=== PATIENT | male | born 1940 | race Caucasian/White ===

== ENCOUNTER 2023-10-05 07:53 | Emergency (ER) | payer MEDICARE, SELFPAY ==
[2023-10-05] VITALS (57 sets, daily range): BP systolic 130–209; BP diastolic 70–93; PULSE 60–86; RESP 15–24; TEMP 36.5; O2SAT 91–98; BMI 29.1
--- NOTE | 2023-10-05 07:59 | DI.RAD.S_ITS ---
PROCEDURE: XR CHEST 1V INDICATIONS: chest pain TECHNIQUE: One view of the chest was acquired. COMPARISON: None. FINDINGS: Surgical changes and devices: Left chest wall pacemaker leads are in the region of right atrium and right ventricle. Median sternotomy wires and surgical clips are seen. Lungs and pleura: Mild elevation of right hemidiaphragm is seen. Mild pulmonary vascular congestion is also noted. No definite focal infiltrate. No pleural effusions or pneumothorax. Mediastinum: Mediastinal contours appear normal. Heart size is enlarged. Bones and chest wall: No suspicious bony lesions. Overlying soft tissues appear unremarkable. IMPRESSION: Cardiomegaly and mild pulmonary vascular congestion. No definite focal infiltrate, significant pleural effusion or pneumothorax. Dictated by: Dakota Nair M.D. on 10/05/2023 at 8:54 Approved by: Dakota Nair M.D. on 10/05/2023 at 8:55
--- NOTE | 2023-10-05 08:06 | ED_ITS ---
HPI - General Adult General Chief complaint: Chest Pain Stated complaint: pain in chest, taken a couple nitro not helping Time Seen by Provider: 10/05/23 07:56 Source: patient Mode of arrival: Ambulatory Limitations: no limitations History of Present Illness HPI narrative: Patient is an 83-year-old male. History of coronary artery disease. Several years ago had coronary artery bypass graft. Also has had an aortic valve replacement approximately year ago. He has a pacemaker. Is here for evaluation of chest discomfort. He states he had some discomfort last evening. He took a nitro. He states it did not help his symptoms. The same pain was present this morning when he woke up. He took 2 more nitro. Does not think that hit has helped at all but he does feel like he is somewhat more comfortable now than what he was earlier. No fevers. No coughing. No abdominal pain. He states that the discomfort is up to his left shoulder. Related Data Previous Rx's Medication Instructions Recorded isosorbide mononitrate 30 mg 30 mg PO DAILY #30 tabs 10/05/23 tablet,extended release 24 hr Allergies Allergy/AdvReac Type Severity Reaction Status Date / Time No Known Drug Allergies Allergy Verified 10/05/23 08:33 Review of Systems Review of Systems ROS Unobtainable: All systems reviewed & are unremarkable except as noted in HPI and below Patient History Social History Smoking Status: Never smoker Exam Initial Vital Signs Initial Vital Signs: Vital Signs Pulse Rate 75 10/05/23 08:00 Respiratory Rate 19 10/05/23 08:00 Pulse Oximetry 91 10/05/23 08:00 Const General: cooperative HENMT Head: normal to inspection and normocephalic Resp Effort & Inspection: normal respiratory effort Auscultation: clear to auscultation bilaterally Cardio Rate: regular rate Rhythm: regular rhythm GI Inspection: normal to inspection and non-distended Palpation: soft and No tender Skin General: no rashes or lesions noted Neuro General: patient alert, patient awake and moves all extremities Extrem General: edema Course Orders Ordered: ED Orders 10/05/23 11:00 Troponin & CK Cardiac Panel Stat Discontinued Medications Aspirin (Aspirin 81 Mg Chew Tab) 324 mg PO NOW ONE Stop: 10/05/23 08:10 Last Admin: 10/05/23 08:16 Dose: 324 mg Documented By: SHYANNE Morphine Sulfate (Morphine 4 Mg/Ml Inj) 4 mg IV NOW ONE Stop: 10/05/23 08:29 Last Admin: 10/05/23 08:35 Dose: 4 mg Documented By: SHYANNE Nitroglycerin (Nitroglycerin 0.4 Mg Sl Tab) 0.4 mg SL [id number] PRN PRN Reason: Chest Pain Last Admin: 10/05/23 08:16 Dose: 0.4 mg Documented By: SHYANNE Vital Signs Vital signs: Vital Signs - 8 hr 10/05/23 10:10 10/05/23 10:15 10/05/23 10:20 Pulse Rate 60 63 62 Respiratory Rate 20 21 19 Blood Pressure Pulse Oximetry 92 97 92 10/05/23 10:25 10/05/23 10:30 10/05/23 10:30 Pulse Rate 60 60 Respiratory Rate 20 19 Blood Pressure 167/78 H Pulse Oximetry 91 94 10/05/23 10:35 10/05/23 10:40 10/05/23 10:45 Pulse Rate 60 63 60 Respiratory Rate 20 19 18 Blood Pressure Pulse Oximetry 94 93 96 10/05/23 10:50 10/05/23 10:55 10/05/23 11:06 Pulse Rate 60 60 86 Respiratory Rate 18 21 Blood Pressure Pulse Oximetry 94 92 93 10/05/23 11:07 10/05/23 11:07 10/05/23 11:10 Pulse Rate 83 64 Respiratory Rate Blood Pressure 182/86 H Pulse Oximetry 93 94 10/05/23 11:15 10/05/23 11:20 10/05/23 11:25 Pulse Rate 60 60 65 Respiratory Rate 21 22 24 Blood Pressure Pulse Oximetry 94 92 96 10/05/23 11:30 10/05/23 11:30 10/05/23 11:35 Pulse Rate 60 66 Respiratory Rate 19 21 Blood Pressure 183/80 H Pulse Oximetry 92 92 10/05/23 11:40 10/05/23 11:45 10/05/23 11:50 Pulse Rate 61 60 60 Respiratory Rate 21 21 20 Blood Pressure Pulse Oximetry 94 94 94 10/05/23 11:55 10/05/23 12:00 10/05/23 12:00 Pulse Rate 60 60 Respiratory Rate 21 19 Blood Pressure 175/80 H Pulse Oximetry 91 10/05/23 12:05 10/05/23 12:30 10/05/23 12:30 Pulse Rate 60 62 Respiratory Rate 18 18 Blood Pressure 170/75 H Pulse Oximetry 92 10/05/23 12:48 10/05/23 12:48 Pulse Rate 63 Respiratory Rate 19 Blood Pressure 182/81 H Pulse Oximetry 96 Medical Decision Making Lab Data Lab results reviewed: Yes I reviewed the patient's lab results. 10/05/23 08:03 10/05/23 08:03 Labs: Lab Results 10/05/23 10/05/23 Range/Units 08:03 11:00 WBC 8.7 (4.5-11.0) X10^3/uL RBC 4.15 L (4.5-5.9) X10^6/uL Hgb 13.1 L (13.5-17.5) g/dL Hct 39.5 L (41-53) % MCV 95.2 (80-100) fL MCH 31.6 (26-34) PG MCHC 33.2 (30-36) % RDW 14.3 (11.6-14.8) % Plt Count 148 L (150-400) X10^3/uL Neut % (Auto) 67.9 (50-75) % Lymph % (Auto) 18.4 L (25-40) % [place] % (Auto) 10.0 (3-14) % Eos % (Auto) 2.9 (2-4) % Baso % (Auto) 0.8 (0-2) % Neut # (Auto) 5900 (4960-4042) /uL Lymph # (Auto) 1600 (3745-7747) /uL [place] # (Auto) 900 (0-900) /uL Eos # (Auto) 300 (0-450) /uL Baso # (Auto) 100 (0-100) /uL Sodium 140 (137-145) mmol/L Potassium 4.1 (3.4-5.1) mmol/L Chloride 102 (98-107) mmol/L Carbon Dioxide 33 H (22-32) mmol/L BUN 25 H (9-20) mg/dL Creatinine 1.16 (0.66-1.25) mg/dL Estimated GFR > 60 (>60) mL/min BUN/Creatinine Ratio 21.6 (6-22) Glucose 139 H (80-110) mg/dL Calcium 9.6 (8.4-10.2) mg/dL Magnesium 1.8 (1.6-2.3) mg/dL Total Bilirubin 0.7 (0.2-1.3) mg/dL AST TNP ALT 23 (<50) IU/L Alkaline Phosphatase 82 (38-126) U/L Total Creatine Kinase 114 93 (55-170) U/L Troponin I 0.039 H 0.024 (0.01-0.034) ng/mL Total Protein 7.3 (6.3-8.2) g/dL Albumin 4.0 (3.5-5.0) g/dL Globulin 3.3 (1.7-4.1) g/dL Albumin/Globulin Ratio 1.2 (1.0-2.8) Lipase 89 (23-300) U/L Imaging Data Chest x-ray: Radiologist's Impression: PROCEDURE: XR CHEST 1V INDICATIONS: chest pain TECHNIQUE: One view of the chest was acquired. COMPARISON: None. FINDINGS: Surgical changes and devices: Left chest wall pacemaker leads are in the region of right atrium and right ventricle. Median sternotomy wires and surgical clips are seen. Lungs and pleura: Mild elevation of right hemidiaphragm is seen. Mild pulmonary vascular congestion is also noted. No definite focal infiltrate. No pleural effusions or pneumothorax. Mediastinum: Mediastinal contours appear normal. Heart size is enlarged. Bones and chest wall: No suspicious bony lesions. Overlying soft tissues appear unremarkable. IMPRESSION: Cardiomegaly and mild pulmonary vascular congestion. No definite focal infiltrate, significant pleural effusion or pneumothorax. ECG Data Attestation: I personally reviewed and interpreted this ECG as follows: Interpretation: Av dual paced Ventricular rate of 63 MDM Narrative Medical decision making narrative: Patient had almost complete resolution of chest discomfort after morphine. Nitro did not seem to help his symptoms all that much. He did state that his elementary school teacher told him that he was looking more of medical management rather than further interventions. I did talk with elementary school teacher on-call at the [place] [facility] who stated the patient could be started on Imdur. A prescription for this was provided. Plan is for discharge home with continuing his current medications. He will start the Imdur. He was given specific return precautions. He expressed understanding and agreement. Discharge Plan Departure Patient Disposition: Home Clinical Impression: Chest pain Instructions: DI for Chest Pain Activity Restrictions/Additional Instructions: We are going to start a new medicine today called Imdur/isosorbide. This is a daily medication that hopefully will help with any chest discomfort. If your symptoms return or worsen please return to the emergency department. Please contact your elementary school teacher for follow-up. Continue the rest of your medications as directed. Prescriptions: New isosorbide mononitrate 30 mg tablet extended release 24 hr 30 mg PO DAILY Qty: 30 0RF Stand Alone Forms: Patient Portal/API
--- NOTE | 2023-10-05 08:12 | PC.NURSE ---
Pt came to the ED today because he woke up and was feeling left cp that radiates down his left arm and into his back. Pt describes pain and dull, crushing and pressure and also states that he is feeling SOB and dizzy. Pt has a hx of cardiac stents, coronoary bipass and valve replacement. Pt hypertensive and pale at the time of triage. Pt AV paced with junctional rhythm.
[2023-10-05 08:15] LABS: Add Manual Diff / Slide Review NO; Basophils Absolute Auto 100 /uL (0-100); Basophils Percent Auto 0.8 % (0-2); Eosinophils Absolute Auto 300 /uL (0-450); Eosinophils Percent Auto 2.9 % (2-4); Hematocrit 39.5 % (41-53); Hemoglobin 13.1 g/dL (13.5-17.5); Lymphocytes Absolute Auto 1600 /uL (1100-4500); Lymphocytes Percent Auto 18.4 % (25-40); Mean Corpuscular HGB Conc 33.2 % (30-36); Mean Corpuscular Hemoglobin 31.6 PG (26-34); Mean Corpuscular Volume 95.2 fL (80-100); Monocytes Absolute Auto 900 /uL (0-900); Neutrophils Absolute Auto 5900 /uL (1500-7000); Neutrophils Percent Auto 67.9 % (50-75); Platelet Count 148 X10^3/uL (150-400); Red Blood Cell Count 4.15 X10^6/uL (4.5-5.9); Red Cell Distribution Width 14.3 % (11.6-14.8); White Blood Cell Count 8.7 X10^3/uL (4.5-11.0)
[2023-10-05] MEDS: ASPIRIN 81 MG CHEW TAB 324 MG PO (08:16)
[2023-10-05] MEDS: NITROGLYCERIN 0.4 MG SL TAB SL (08:16)
[2023-10-05] MEDS: MORPHINE 4 MG/ML INJ IV (08:35)
[2023-10-05 08:42] LABS: Alanine Aminotransferase 23 IU/L (<50); Albumin Globulin Ratio 1.2 (1.0-2.8); Alkaline Phosphatase 82 U/L (38-126); BUN Creatinine Ratio 21.6 (6-22); Bilirubin Total 0.7 mg/dL (0.2-1.3); Blood Urea Nitrogen 25 mg/dL (9-20); Calcium 9.6 mg/dL (8.4-10.2); Carbon Dioxide 33 mmol/L (22-32); Chloride 102 mmol/L (98-107); Creatine Kinase 114 U/L (55-170); Estimated Glomerular Filt Rate > 60 mL/min (>60); Globulin 3.3 g/dL (1.7-4.1); Glucose 139 mg/dL (80-110); Lipase 89 U/L (23-300); Magnesium 1.8 mg/dL (1.6-2.3); Potassium 4.1 mmol/L (3.4-5.1); Sodium 140 mmol/L (137-145); Total Protein 7.3 g/dL (6.3-8.2)
[2023-10-05 08:54] LABS: Troponin I 0.039 ng/mL (0.01-0.034)
[2023-10-05 11:35] LABS: Creatine Kinase 93 U/L (55-170)
[2023-10-05 11:47] LABS: Troponin I 0.024 ng/mL (0.01-0.034)
[2023-10-07 17:14] LABS: HEMOLYSIS 19 (0-50)
[2023-10-07 17:15] LABS: Aspartate Aminotransferase 37 IU/L (17-59)
== END 2023-10-05 13:05 | disposition home or self-care (01) ==
PROVIDERS: Emergency Provider Emergency Medicine
DX: R07.9 Chest pain, unspecified (principal); Z95.5 Presence of coronary angioplasty implant and graft; Z95.0 Presence of cardiac pacemaker
CPT/HCPCS: 36415; 71045; 80053; 82550; 83690; 83735; 84484; 85025; 93005; 96374; 99284; J2270

== ENCOUNTER 2024-06-18 10:45 | Emergency (ER) | payer MEDICARE, SELFPAY ==
[2024-06-18] VITALS (7 sets, daily range): BP systolic 133–185; BP diastolic 65–85; PULSE 75–90; RESP 18–26; TEMP 36.5; O2SAT 91–99; BMI 30.4
--- NOTE | 2024-06-18 10:59 | DI.RAD.S_ITS ---
PROCEDURE: XR CHEST 1V INDICATIONS: chest pain TECHNIQUE: One view of the chest was acquired. COMPARISON: [facility], CR, XR CHEST 1V, 10/05/2023, 8:32. FINDINGS: New mild bilateral perihilar and lower lobe peribronchial thickening some of which may be related expiratory result with mild bibasilar subsegmental atelectasis although bronchitis, viral infection, bronchopneumonia or other process could be considered. Moderately elevated right hemidiaphragm unchanged. Mildly prominent mone, pulmonary vascular congestion and/or hilar lymph nodes unchanged. Median sternotomy, CABG, dual lead pacemaker with left-sided battery pack, and proximal aortic endograft prosthesis unchanged. Moderate calcifications of the aortic arch unchanged. 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 No pneumothorax, no large pleural effusion. IMPRESSION: New mild bilateral perihilar and lower lobe peribronchial thickening as discussed above. Moderately elevated right hemidiaphragm unchanged. Mildly prominent mone unchanged. Dictated by: Delfino Alvarado M.D. on 06/18/2024 at 11:53 Approved by: Delfino Alvarado M.D. on 06/18/2024 at 11:58
[2024-06-18 11:03] LABS: Add Manual Diff / Slide Review NO; Basophils Absolute Auto 0 /uL (0-100); Basophils Percent Auto 0.5 % (0-2); Eosinophils Absolute Auto 100 /uL (0-450); Eosinophils Percent Auto 1.7 % (2-4); Hematocrit 40.2 % (41-53); Hemoglobin 13.3 g/dL (13.5-17.5); Lymphocytes Absolute Auto 1500 /uL (1100-4500); Lymphocytes Percent Auto 17.6 % (25-40); Mean Corpuscular HGB Conc 33.2 % (30-36); Mean Corpuscular Hemoglobin 31.1 PG (26-34); Mean Corpuscular Volume 93.6 fL (80-100); Monocytes Absolute Auto 900 /uL (0-900); Monocytes Percent Auto 10.5 % (3-14); Neutrophils Absolute Auto 5800 /uL (1500-7000); Neutrophils Percent Auto 69.7 % (50-75); Platelet Count 140 X10^3/uL (150-400); Red Blood Cell Count 4.29 X10^6/uL (4.5-5.9); Red Cell Distribution Width 15.7 % (11.6-14.8); White Blood Cell Count 8.4 X10^3/uL (4.5-11.0)
[2024-06-18 11:10] LABS: Prothrombin Time 11.7 SECONDS (9.4-12.5)
--- NOTE | 2024-06-18 11:10 | ED_ITS ---
HPI - Neuro Symptoms/Deficit General Chief Complaint: Neuro Symptoms/Deficit Stated Complaint: Feels like he is having a stroke Time Seen by Provider: 06/18/24 10:56 Source: patient Mode of arrival: Ambulatory History of Present Illness HPI Narrative: Patient is a 83-year-old male with past medical history of coronary artery disease. Several years ago had coronary artery bypass graft. Also has had an aortic valve replacement approximately year ago. He has a pacemaker. comes into the ED from home for evaluation of left lower extremity weakness numbness started approximately 1 hour ago he states that he is not really sure how to describe his symptoms but states that it is worse when he is moving his legs. States that he has been feeling left arm pain over the past few days, however he states that that has been fine, he states that he woke up and started walking around has baseline pain to his left leg but states that he started feeling weakness/numbness to the left leg therefore decided come into the ED for evaluation treatment. No trauma no falls, at time of initial evaluation NIH of 1 for decreased sensation in the left lower extremity. Not on any blood thinners, stroke alert called On Anticoagulants: Yes (asa) Related Data Previous Rx's Medication Instructions Recorded isosorbide mononitrate 30 mg 30 mg PO DAILY #30 tabs 10/05/23 tablet,extended release 24 hr Allergies Allergy/AdvReac Type Severity Reaction Status Date / Time No Known Drug Allergies Allergy Verified 10/05/23 08:33 Review of Systems Review of Systems Narrative: HEENT: Denies headache, eye drainage, eye irritation, head trauma, sore throat, voice change Cardiovascular: Denies any chest pain, palpitations, shortness of breath, tachycardia Respiratory: Denies any shortness of breath, cough, wheeze, stridor GI/: Denies any abdominal pain, nausea, vomiting, diarrhea, bright red blood per rectum, melanotic stools, urinary frequency, urinary retention, dysuria, hematuria MSK: Denies any joint pain, muscle pains, swelling Skin: Denies any rashes, lesions, discoloration Neuro: Denies any headache, lightheadedness, dizziness, fainting, decreased weakness and tingling to left lower extremity Psych: Denies SI/HI Hematologic/Lymphatic On Anticoagulants: Yes (asa) Patient History Social History Smoking Status: Never smoker Smoking Status: Never smoker alcohol intake frequency: holidays/special occasions only Substance Use Type: does not use Exam Narrative Exam Narrative: General: Cooperative, comfortable, well-developed, not in acute distress HEENT: Normocephalic, atraumatic, PERRLA, normal sclera, eyelids normal, Neck: Active full range of motion, atraumatic Chest: Normal to inspection, negative crepitus, no overlying erythema ecchymosis Respiratory: Normal respiratory effort, not in acute respiratory distress, clear to auscultation bilaterally negative cough, wheeze, tachypnea, rhonchi, rales Cardiology: Regular rate rhythm negative gallop, murmur, rubs GI/: Normal to inspection, soft, nonrigid, no tenderness to palpation, exam deferred MSK: Full range of active range of motion of all 4 extremities, atraumatic Skin: No rashes lesions noted Neuro: Alert awake oriented x3, moves all 4 extremities spontaneously, cranial nerves intact, able to answer all questions appropriately follows commands appropriatel, NIH of 1 given left lower extremity decreased sensation Psych: Cooperative, negative suicidal or homicidal ideations Initial Vital Signs Initial Vital Signs: Vital Signs Pulse Rate 90 06/18/24 10:53 Respiratory Rate 25 H 06/18/24 10:53 Pulse Oximetry 93 06/18/24 10:53 Scores NIH Stroke Scale Level of Conciousness: Alert, keenly responsive Ask month/age: Answers both questions correctly. Open/close eyes, close hand: Performs both tasks correctly Best gaze horizontal: Normal Visual lance: No visual loss Facial palsy: Normal symetrical movement Left arm drift: No drift for full 10 sec Right arm drift: No drift for full 10 sec Left leg drift: No drift for full 5 sec Right leg drift: No drift for full 5 sec Limb ataxia: Absent Sensory on face/arms/legs: Mild to moderate sensory loss, can tell touch (decreased to left leg) Best language: No aphasia, normal Dysarthria: Normal Extinction or inattention: No abnormality Total NIH Stroke scale score: 1 Course Orders Ordered: ED Orders 06/18/24 10:54 Complete Blood Count AUTO DIFF Stat Comprehensive Metabolic Panel Stat Ethanol (ETOH) Stat Lipase Stat Magnesium Stat NT-proBNP (BNP-Adult 18+) Stat PTT Partial Thromboplastin Rod Stat Prothrombin Time INR Stat Troponin & CK Cardiac Panel Stat 06/18/24 10:59 XR chest 1V Stat EKG-12 Lead Stat 06/18/24 11:[address] angio head and neck Stat 06/18/24 11:32 Urinalysis and Microscopic Stat Urine Drug Screen, Rapid Stat 06/18/24 12:01 COVID19 -Nasal RAPID Stat Vital Signs Vital signs: Vital Signs - 8 hr 06/18/24 10:53 06/18/24 10:54 06/18/24 10:54 Temperature 97.7 F Pulse Rate 90 86 Respiratory Rate 25 H 18 Blood Pressure 185/85 H 152/65 H Pulse Oximetry 93 99 Oxygen Delivery Method Room Air 06/18/24 10:54 06/18/24 11:00 06/18/24 11:00 Temperature Pulse Rate 88 85 Respiratory Rate 26 H 26 H Blood Pressure 144/75 H Pulse Oximetry 94 95 Oxygen Delivery Method Room Air 06/18/24 11:30 06/18/24 11:31 06/18/24 11:31 Temperature Pulse Rate 81 83 Respiratory Rate Blood Pressure 158/73 H Pulse Oximetry 91 94 Oxygen Delivery Method 06/18/24 12:00 06/18/24 12:00 06/18/24 12:30 Temperature Pulse Rate 79 Respiratory Rate 20 Blood Pressure 133/68 168/74 H Pulse Oximetry Oxygen Delivery Method 06/18/24 12:30 Temperature Pulse Rate 75 Respiratory Rate 20 Blood Pressure Pulse Oximetry 91 Oxygen Delivery Method MDM - Neuro Symptoms/Deficit Differential Diagnosis Differential diagnosis: Likely cerebrovascular accident and other (Electrolyte abnormality, ACS,) Condition is:: Improved Medical Records Attestation: I reviewed the patient's medical records. Lab Data Attestation: I reviewed the patient's lab results. 06/18/24 10:54 06/18/24 10:54 Labs: Lab Results 06/18/24 06/18/24 06/18/24 Range/Units 10:54 11:32 11:32 WBC 8.4 (4.5-11.0) X10^3/uL RBC 4.29 L (4.5-5.9) X10^6/uL Hgb 13.3 L (13.5-17.5) g/dL Hct 40.2 L (41-53) % MCV 93.6 (80-100) fL MCH 31.1 (26-34) PG MCHC 33.2 (30-36) % RDW 15.7 H (11.6-14.8) % Plt Count 140 L (150-400) X10^3/uL Neut % (Auto) 69.7 (50-75) % Lymph % (Auto) 17.6 L (25-40) % [place] % (Auto) 10.5 (3-14) % Eos % (Auto) 1.7 L (2-4) % Baso % (Auto) 0.5 (0-2) % Neut # (Auto) 5800 (4581-0160) /uL Lymph # (Auto) 1500 (6417-0687) /uL [place] # (Auto) 900 (0-900) /uL Eos # (Auto) 100 (0-450) /uL Baso # (Auto) 0 (0-100) /uL PT 11.7 (9.4-12.5) SECONDS INR 1.0 (0.9-1.3) APTT 29 (25.1-36.5) SECONDS Sodium 139 (137-145) mmol/L Potassium 4.4 (3.4-5.1) mmol/L Chloride 103 (98-107) mmol/L Carbon Dioxide 32 (22-32) mmol/L BUN 24 H (9-20) mg/dL Creatinine 1.38 H (0.66-1.25) mg/dL Estimated GFR 50 L (>60) mL/min BUN/Creatinine Ratio 17.4 (6-22) Glucose 128 H (80-110) mg/dL Calcium 9.5 (8.4-10.2) mg/dL Magnesium 1.9 (1.6-2.3) mg/dL Total Bilirubin 0.9 (0.2-1.3) mg/dL AST 38 (17-59) IU/L ALT 24 (<50) IU/L Alkaline Phosphatase 88 (38-126) U/L Total Creatine Kinase 166 (55-170) U/L Troponin I < 0.012 (0.01-0.034) ng/mL NT-Pro-B Natriuret Pep 504 H (<450) pg/mL Total Protein 7.3 (6.3-8.2) g/dL Albumin 4.1 (3.5-5.0) g/dL Globulin 3.2 (1.7-4.1) g/dL Albumin/Globulin Ratio 1.3 (1.0-2.8) Lipase 86 (23-300) U/L Urine Color Yellow Urine Appearance Clear Urine pH 6.0 Normal (4.5-8.0) Ur Specific [place] 1.010 (1.000-1.035) Urine Protein Negative (Negative) Urine Glucose (UA) Negative (Negative) g/dL Urine Ketones Negative (NEGATIVE) Urine Occult Blood Negative (Negative) Urine Nitrate Negative (Negative) Urine Bilirubin Negative (NEGATIVE) Urine Urobilinogen 0.2 (0.2) E.U./dL Ur Leukocyte Esterase Negative (NEGATIVE) Urine RBC 0-1/hpf (0-5/HPF) Urine WBC 0-1/hpf (0-5/HPF) Ur Squamous Epith Cells 0-1 /hpf (0-5/HPF) Urine Bacteria Occasional (0-1) (None) Ur Culture Indicated? Cult not indicated Vol Urine Centrifuged 10ml (spun) U Opiates 300ng/mL cut Negative (Negative) Ur Oxycodone Screen Negative (Negative) Urine Methadone Screen Negative (Negative) Ur Barbiturates Screen Negative (Negative) U Tricyclic Antidepress Negative (Negative) Ur Phencyclidine Scrn Negative (Negative) Ur Amphetamines Screen Negative (Negative) U Methamphetamines Scrn Negative (Negative) Ur MDMA Scrn (Ecstasy) Negative (Negative) U Benzodiazepines Scrn Negative (Negative) Urine Cocaine Screen Negative (Negative) U Marijuana (THC) Screen Negative (Negative) Urine Specific [place] Normal (Normal) Ethyl Alcohol < 10 ( - 10) mg/dL Ur Creatinine Normal (Normal) SARS-CoV-2 (PCR) (Negative) 06/18/24 Range/Units 12:01 WBC (4.5-11.0) X10^3/uL RBC (4.5-5.9) X10^6/uL Hgb (13.5-17.5) g/dL Hct (41-53) % MCV (80-100) fL MCH (26-34) PG MCHC (30-36) % RDW (11.6-14.8) % Plt Count (150-400) X10^3/uL Neut % (Auto) (50-75) % Lymph % (Auto) (25-40) % [place] % (Auto) (3-14) % Eos % (Auto) (2-4) % Baso % (Auto) (0-2) % Neut # (Auto) (3235-5397) /uL Lymph # (Auto) (6283-0456) /uL [place] # (Auto) (0-900) /uL Eos # (Auto) (0-450) /uL Baso # (Auto) (0-100) /uL PT (9.4-12.5) SECONDS INR (0.9-1.3) APTT (25.1-36.5) SECONDS Sodium (137-145) mmol/L Potassium (3.4-5.1) mmol/L Chloride (98-107) mmol/L Carbon Dioxide (22-32) mmol/L BUN (9-20) mg/dL Creatinine (0.66-1.25) mg/dL Estimated GFR (>60) mL/min BUN/Creatinine Ratio (6-22) Glucose (80-110) mg/dL Calcium (8.4-10.2) mg/dL Magnesium (1.6-2.3) mg/dL Total Bilirubin (0.2-1.3) mg/dL AST (17-59) IU/L ALT (<50) IU/L Alkaline Phosphatase (38-126) U/L Total Creatine Kinase (55-170) U/L Troponin I (0.01-0.034) ng/mL NT-Pro-B Natriuret Pep (<450) pg/mL Total Protein (6.3-8.2) g/dL Albumin (3.5-5.0) g/dL Globulin (1.7-4.1) g/dL Albumin/Globulin Ratio (1.0-2.8) Lipase (23-300) U/L Urine Color Urine Appearance Urine pH (4.5-8.0) Ur Specific [place] (1.000-1.035) Urine Protein (Negative) Urine Glucose (UA) (Negative) g/dL Urine Ketones (NEGATIVE) Urine Occult Blood (Negative) Urine Nitrate (Negative) Urine Bilirubin (NEGATIVE) Urine Urobilinogen (0.2) E.U./dL Ur Leukocyte Esterase (NEGATIVE) Urine RBC (0-5/HPF) Urine WBC (0-5/HPF) Ur Squamous Epith Cells (0-5/HPF) Urine Bacteria (None) Ur Culture Indicated? Vol Urine Centrifuged U Opiates 300ng/mL cut (Negative) Ur Oxycodone Screen (Negative) Urine Methadone Screen (Negative) Ur Barbiturates Screen (Negative) U Tricyclic Antidepress (Negative) Ur Phencyclidine Scrn (Negative) Ur Amphetamines Screen (Negative) U Methamphetamines Scrn (Negative) Ur MDMA Scrn (Ecstasy) (Negative) U Benzodiazepines Scrn (Negative) Urine Cocaine Screen (Negative) U Marijuana (THC) Screen (Negative) Urine Specific [place] (Normal) Ethyl Alcohol ( - 10) mg/dL Ur Creatinine (Normal) SARS-CoV-2 (PCR) Negative (Negative) Point of Care Testing Glucose POC [address] scan - head: Radiologist's Impression: [address] [address] [address] Scan Report Signed Patient: Catrachito Godoy MR#: [id number] : 1940 Acct:[id number] Age/Sex: 83 / M Date of Service: 06/18/24 Loc: ED Accession Number: [id number] Procedure: CT Stroke Ordering Provider: Shailesh Samuel D.O. PROCEDURE: CT STROKE INDICATIONS: left sided weakness TECHNIQUE: Noncontrast 4.5 mm thick angled axial sections acquired from the foramen magnum to the vertex, with coronal reformats. For radiation dose reduction, the following was used: automated exposure control, adjustment of mA and/or kV according to patient size. COMPARISON: [facility], CT, CT ANGIO HEAD AND NECK, 06/18/2024, 11:13. FINDINGS: Image quality: Diagnostic. CSF spaces: Basal cisterns are patent. No extra-axial fluid collections. The ventricles are symmetric in size and shape. Brain: No intracranial bleeds or masses. There is cerebral volume loss for age, with resultant ventricular and sulcal prominence. There are periventricular and deep white matter chronic small vessel ischemic changes. There is intracranial internal carotid artery atherosclerosis. Skull and face: Calvarium and visualized facial bones appear intact, without suspicious lesions. Sinuses: Visualized sinuses and mastoids are clear. IMPRESSION: No acute intracranial pathology. Findings discussed with Dr. Samuel at 11:27 a.m. On 06/18/2024. This study fulfills neurological imaging criteria for inclusion or exclusion of acute stroke therapies based on available published neurological guidelines. Dictated by: Torito Dickey M.D. on 06/18/2024 at 11:25 Approved by: Torito Dickey M.D. on 06/18/2024 at 11:27 CTA head and neck: Radiologist's Impression: PROCEDURE: CT ANGIO HEAD AND NECK INDICATIONS: left sided weakness TECHNIQUE: After the administration of intravenous contrast, 1 mm thick sections acquired from the aortic arch through the [place] of [place]. 3-dimensional [id number]-[id number] (MIP) and/or volume rendering reformats were acquired of the central intracranial vasculature and neck separately. For radiation dose reduction, the following was used: automated exposure control, adjustment of mA and/or kV according to patient size. COMPARISON: None. FINDINGS: Image quality: Diagnostic. BRAIN: No significant change since same day CT. HEAD CT ANGIOGRAPHY: Anterior circulation: Intracranial internal carotid arteries are normal in size and flow. The flow within the paired anterior cerebral arteries is normal and symmetric. The flow within the middle cerebral arteries is normal and symmetric. The anterior communicating artery is seen. No aneurysms are seen. Posterior circulation: Visualized portions of the vertebral arteries demonstrate normal caliber, and join to form a normal appearing basilar artery. Flow within the posterior cerebral arteries is normal and symmetric. No aneurysms are seen. NECK CT ANGIOGRAPHY: Carotid system: The great vessels demonstrate a conventional anatomy as they arise from the aortic arch. The origins of the common carotid arteries appear patent. The common carotid arteries demonstrate normal caliber and courses. The bifurcation regions are both widely patent. The internal carotid arteries demonstrate normal calibers and courses. Posterior circulation: The origins of the vertebral arteries both appear widely patent. The more superior extracranial portions of both vertebral arteries also demonstrate normal courses and calibers. They join to form a normal appearing basilar artery. Soft tissues: Visualized neck soft tissues demonstrate no suspicious abnormalities. Bones: No suspicious bony lesions. Visualized cervical spine appears normally aligned. IMPRESSION: No significant intracranial arterial abnormality is seen. No significant abnormality is seen within the arteries of the neck. Any quantitative measurements of stenosis were performed using NASCET criteria. ECG Data Attestation: I personally reviewed and interpreted this ECG as follows: Interpretation: EKG interpreted by ED physician, ventricularly paced at 76 MDM Narrative Medical decision making narrative: Patient is a 83-year-old male with past medical history of CAD CABG with pacemaker comes from home for evaluation of left arm pain as well as left lower extremity numbness/decreased sensation however he states that it is hard to describe the symptoms he is experiencing. States that it did start when he was walking at his home. It does sound more MSK however given The left lower extremity symptoms started 1 hour prior to arrival therefore stroke alert was called, he states that the left arm pain has been ongoing and persistent for the past several days states that it started in his elbow radiated up into his left side of his neck. But denies any current chest pain shortness of breath or any other symptoms. Not on any blood thinners. 1128: Informed by radiologist Dr. Dickey CT scan head no acute infarct or hemorrhage, CTA head and neck without any large vessel occlusion Had a discussion with the patient regards to his symptoms, he states that he is not having any symptoms unless he is bearing weight, he states that his symptoms really only start when he is moving, so again he states it has not necessarily weakness sensation or pain, he states that it is hard to ?describe. I did offer the patient admission/transfer for possible additional workup for TIA. He states that he does not want to do this, states that he would rather follow-up with PCP and cardiology in outpatient setting. I believe that his symptoms are more secondary to MSK, I will send patient home with referral to Cardiology Neurology patient was given strict return precautions and will be safe for discharge home with outpatient follow-up Discharge Plan Departure Patient Disposition: Home Clinical Impression: Acute leg pain, Arm pain Activity Restrictions/Additional Instructions: Please follow up with primary care, Neurology and Cardiology Please read the discharge instructions sheet carefully and bring all papers to all doctor follow-up visits, as it may contain information that your doctor may want to see. Disease processes change and evolve, if your symptoms worsen or if you develop any new symptoms that are concerning to you please return for evaluation. Your evaluation today does not show any evidence of any life- threatening/serious illnesses requiring admission to the hospital or surgery. Please follow-up with your doctor for re-evaluation in approximately 1 day. Seek immediate medical attention for any worrisome symptoms. Prescriptions: No Action isosorbide mononitrate 30 mg tablet extended release 24 hr 30 mg PO DAILY Qty: 30 0RF Referrals: Barron Nair MD [Physician] - Stand Alone Forms: Patient Portal/API
[2024-06-18 11:12] LABS: PTT Partial Thromboplastin Tim 29 SECONDS (25.1-36.5)
[2024-06-18 11:16] LABS: Alanine Aminotransferase 24 IU/L (<50); Albumin 4.1 g/dL (3.5-5.0); Albumin Globulin Ratio 1.3 (1.0-2.8); Alkaline Phosphatase 88 U/L (38-126); Aspartate Aminotransferase 38 IU/L (17-59); BUN Creatinine Ratio 17.4 (6-22); Bilirubin Total 0.9 mg/dL (0.2-1.3); Blood Urea Nitrogen 24 mg/dL (9-20); Calcium 9.5 mg/dL (8.4-10.2); Carbon Dioxide 32 mmol/L (22-32); Chloride 103 mmol/L (98-107); Creatine Kinase 166 U/L (55-170); Estimated Glomerular Filt Rate 50 mL/min (>60); Globulin 3.2 g/dL (1.7-4.1); Glucose 128 mg/dL (80-110); HEMOLYSIS < 15 (0-50); Lipase 86 U/L (23-300); Magnesium 1.9 mg/dL (1.6-2.3); Potassium 4.4 mmol/L (3.4-5.1); Sodium 139 mmol/L (137-145); Total Protein 7.3 g/dL (6.3-8.2)
[2024-06-18 11:25] LABS: Ethanol (ETOH) < 10 mg/dL
[2024-06-18 11:28] LABS: NT-proBNP (BNP-Adult 18+) 504 pg/mL (<450); Troponin I < 0.012 ng/mL (0.01-0.034)
--- NOTE | 2024-06-18 11:29 | EKG_ITS ---
[address] [address] Test Date: 2024-06-18 Pat Name: Catrachito Godoy Department: Room: Gender: Male [employer] Superintendent: RUY : 1940 Requested By: Order Number: [id number] Reading MD: Shailesh Ballesteros Measurements Intervals [place] Rate: 76 P: 53 CT: QRS: -29 QRSD: 178 T: 126 QT: 448 QTc: 504 Interpretive Statements Ventricular-paced rhythm Electronically Signed On 06-21-2024 19:47:04 PDT by Shailesh Ballesteros
[2024-06-18 11:46] LABS: Appearance Urine UA CLEAR; Bilirubin Urine UA NEGATIVE (NEGATIVE); Color Urine UA YELLOW; Glucose Urine UA NEGATIVE (Negative); Ketones Urine UA NEGATIVE (NEGATIVE); Leukocyte Esterase Urine UA NEGATIVE (NEGATIVE); Nitrite Urine UA NEGATIVE (Negative); Occult Blood Urine UA NEGATIVE (Negative); Protein Urine UA NEGATIVE (Negative); Urobilinogen Urine UA 0.2 E.U./dL (0.2)
[2024-06-18 11:49] LABS: Ur Creatinine Normal (Normal); Ur Specific Gravity Normal (Normal); Urine pH Normal (Normal)
[2024-06-18 11:50] LABS: UR Morphine/Opiate cutoff 300 Negative (Negative); Urine Amphetamines Negative (Negative); Urine Barbiturates Negative (Negative); Urine Benzodiazepines Negative (Negative); Urine Cocaine Negative (Negative); Urine MDMA Negative (Negative); Urine Methadone Negative (Negative); Urine Methamphetamines Negative (Negative); Urine Oxycodone Negative (Negative); Urine Phencyclidine Negative (Negative); Urine Tetrahydrocannabinol Negative (Negative); Urine Tricyclic Antidepressant Negative (Negative)
[2024-06-18 11:53] LABS: Bacteria Urine Occasional (0-1); Culture Indicated Urine Cult Not Indicated; RBC Urine 0-1/HPF (0-5/HPF); Squamous Epithelial Cell Urine 0-1 /HPF (0-5/HPF); Urine Volume 10mL (spun); WBC Urine 0-1/HPF (0-5/HPF)
[2024-06-18 12:20] LABS: COVID19 -Nasal RAPID Negative (Negative)
== END 2024-06-18 12:55 | disposition home or self-care (01) ==
PROVIDERS: Emergency Provider Student in an Organized Health Care Education/Training Program
DX: M79.605 Pain in left leg (principal); M79.602 Pain in left arm; R53.1 Weakness; R07.9 Chest pain, unspecified; R79.89 Other specified abnormal findings of blood chemistry; I25.10 Atherosclerotic heart disease of native coronary artery without angina pectoris; Z95.5 Presence of coronary angioplasty implant and graft; Z95.0 Presence of cardiac pacemaker; Z95.2 Presence of prosthetic heart valve; Z79.01 Long term (current) use of anticoagulants; R29.701 NIHSS score 1; Z11.52 Encounter for screening for COVID-19
CPT/HCPCS: 36415; 70450; 70496; 70498; 71045; 80053; 80305; 80320; 81001; 82550; 82962; 83690; 83735; 83880; 84484; 85025; 85610; 85730; 87635; 93005; 99284; Q9967

== ENCOUNTER 2024-09-08 20:51 | Emergency (ER) | payer MEDICARE, SELFPAY ==
--- NOTE | 2024-09-08 20:53 | ED.DENTAL ---
HPI - Dental/Oral General Chief complaint: Dental/Oral Stated complaint: infected tooth, fever Time Seen by Provider: 09/08/24 20:52 History of Present Illness HPI Narrative: 84-year-old male with a history of coronary artery disease, CABG, aortic valve replacement proximally 1 year ago with pacemaker comes into the ED from home for evaluation of left lower dental pain, states that he noticed some pain proximally 2-3 days ago, states that he feels like it is starting to swell, but denies any voice changes trismus stridor tolerating secretions speaking full sentences protecting airway. 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 Denies any other symptoms at this time. Related Data Previous Rx's Medication Instructions Recorded isosorbide mononitrate 30 mg 30 mg PO DAILY #30 tabs 10/05/23 tablet,extended release 24 hr amoxicillin 875 mg-potassium 1 tab PO Q8H 1 week #21 tabs 09/08/24 clavulanate 125 mg tablet Allergies Allergy/AdvReac Type Severity Reaction Status Date / Time No Known Drug Allergies Allergy Verified 10/05/23 08:33 Review of Systems Review of Systems Narrative: General: Denies fever, chills, weight loss HEENT: Positive dental pain, Denies headache, eye drainage, eye irritation, head trauma, sore throat, voice change Cardiovascular: Denies any chest pain, palpitations, shortness of breath, tachycardia Respiratory: Denies any shortness of breath, cough, wheeze, stridor GI/: Denies any abdominal pain, nausea, vomiting, diarrhea, bright red blood per rectum, melanotic stools, urinary frequency, urinary retention, dysuria, hematuria MSK: Denies any joint pain, muscle pains, swelling Skin: Denies any rashes, lesions, discoloration Neuro: Denies any headache, lightheadedness, dizziness, fainting, weakness Psych: Denies SI/HI Patient History Social History Smoking Status: Never smoker Smoking Status: Never smoker alcohol intake frequency: holidays/special occasions only Exam Narrative Exam Narrative: General: Cooperative, comfortable, well-developed, not in acute distress HEENT: Normocephalic, atraumatic, PERRLA, normal sclera, eyelids normal, no notable periapical abscess to the lower left jaw, no voice changes no stridor no trismus tolerating secretions protecting airway, dental louise noted Neck: Active full range of motion, atraumatic Chest: Normal to inspection, negative crepitus, no overlying erythema ecchymosis Respiratory: Normal respiratory effort, not in acute respiratory distress, clear to auscultation bilaterally negative cough, wheeze, tachypnea, rhonchi, rales Cardiology: Regular rate rhythm negative gallop, murmur, rubs GI/: Normal to inspection, soft, nonrigid, no tenderness to palpation, exam deferred MSK: Full range of active range of motion of all 4 extremities, atraumatic Skin: No rashes lesions noted Neuro: Alert awake oriented x3, moves all 4 extremities spontaneously, cranial nerves intact, able to answer all questions appropriately follows commands appropriately Psych: Cooperative, negative suicidal or homicidal ideations MDM - Dental/Oral Differential Diagnosis Differential diagnosis: Likely dental caries, toothache and dental abscess MDM Narrative Medical decision making narrative: 84-year-old male history aortic valve replacement K CAD CABG presents for dental pain started several days ago no other symptoms at this time, he is supposed to follow up with a dentist on Tuesday but 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 At evaluation no prior apical abscess, no voice changes no stridor no trismus protecting airway for tolerating secretions he will be started prophylactically on Augmentin given dental pain as well as history of aortic valve replacement. He was given strict return precautions he verbalized understanding of this and agrees to being discharged home with outpatient follow up Discharge Plan Departure Patient Disposition: Home Clinical Impression: Pain, dental Activity Restrictions/Additional Instructions: Please follow up with a dentist on Tuesday your symptoms Please read the discharge instructions sheet carefully and bring all papers to all doctor follow-up visits, as it may contain information that your doctor may want to see. Disease processes change and evolve, if your symptoms worsen or if you develop any new symptoms that are concerning to you please return for evaluation. Your evaluation today does not show any evidence of any life-threatening/serious illnesses requiring admission to the hospital or surgery. Please follow-up with your doctor for re-evaluation in approximately 1 day. Seek immediate medical attention for any worrisome symptoms. *If you do not have a primary care provider please contact the [facility] Resource line at [phone]. They will ask some questions about your medical history and help get you set up with a doctor in the community. Prescriptions: New amoxicillin-pot clavulanate 875-125 mg tablet 1 tab PO Q8H 7 Days Qty: 21 0RF No Action isosorbide mononitrate 30 mg tablet extended release 24 hr 30 mg PO DAILY Qty: 30 0RF Stand Alone Forms: Patient Portal/API/Survey
[2024-09-08 20:59] VITALS: BP 166/84; PULSE 87; RESP 16; TEMP 36.2; O2SAT 92; BMI 29.9
[2024-09-08] MEDS: AMOXICILLIN/CLAV 875/125 MG 1 TAB PO (21:04)
== END 2024-09-08 21:06 | disposition home or self-care (01) ==
PROVIDERS: Emergency Provider Student in an Organized Health Care Education/Training Program
DX: K08.89 Other specified disorders of teeth and supporting structures (principal); Z95.0 Presence of cardiac pacemaker
CPT/HCPCS: 99283

== ENCOUNTER → 2025-01-24 10:59 | Outpatient (CLI) | payer MEDICARE, SELFPAY ==
[2025-01-24 12:27] LABS: Influenza A - CEPHEID Flu A NEGATIVE (NEGATIVE); Influenza B - CEPHEID Flu B NEGATIVE (NEGATIVE); Respiratory Syncytial Virus Negative (Negative)
[2025-01-24 12:33] LABS: COVID-19 CEPHEID 4-PLEX PCR POSITIVE (Negative)
== END ==
PROVIDERS: Visit Provider Physician Assistant
DX: R05.1 Acute cough (principal); J02.9 Acute pharyngitis, unspecified
CPT/HCPCS: 0241U; 87070

== ENCOUNTER → 2025-01-25 16:50 | Outpatient (CLI) | payer MEDICARE, SELFPAY ==
[2025-01-25 17:40] LABS: Blood Urea Nitrogen 34 mg/dL (9-20); Calcium 8.9 mg/dL (8.4-10.2); Carbon Dioxide 32 mmol/L (22-32); Chloride 101 mmol/L (98-107); Estimated Glomerular Filt Rate 46 mL/min (>60); Glucose 109 mg/dL (70-99); HEMOLYSIS < 15 (0-50); Potassium 4.6 mmol/L (3.4-5.1); Sodium 138 mmol/L (137-145)
== END ==
PROVIDERS: Referring Provider Internal Medicine; Visit Provider Internal Medicine
DX: R69 Illness, unspecified (principal)
CPT/HCPCS: 36415; 80048

== ENCOUNTER → 2025-03-25 15:15 | Outpatient (CLI) | payer MEDICARE, SELFPAY ==
--- NOTE | 2025-03-25 15:20 | DI.RAD.S_ITS ---
PROCEDURE: XR CLAVICLE RT INDICATIONS: FALL TECHNIQUE: 2 views of the clavicle were acquired. COMPARISON: None. FINDINGS: Bones: There are no fracture or other osseous abnormalities. Acromioclavicular and glenohumeral joints: Mild degeneration Soft tissues: No soft tissue swelling, calcification or mass. IMPRESSION: No fracture. Dictated by: Catrachito Willoughby M.D. on 03/27/2025 at 11:42 Approved by: Catrachito Willoughby M.D. on 03/27/2025 at 11:43
--- NOTE | 2025-03-25 15:20 | DI.RAD.S_ITS ---
PROCEDURE: XR SHOULDER RT MIN 2V INDICATIONS: RIGHT SHOULDER PAIN TECHNIQUE: Three views of the right shoulder were acquired. COMPARISON: None. FINDINGS: Bones: Cluster degenerative cyst is seen in the lateral proximal humerus. Acromioclavicular and glenohumeral joints: Mild acromioclavicular and glenohumeral degeneration appreciated Soft tissues: No soft tissue swelling, calcification or mass. IMPRESSION: Mild degeneration Dictated by: Catrachito Willoughby M.D. on 03/27/2025 at 11:40 Approved by: Catrachito Willoughby M.D. on 03/27/2025 at 11:42
== END ==
LOC: RAD 15:18
PROVIDERS: Referring Provider Internal Medicine; Visit Provider Internal Medicine
DX: M19.011 Primary osteoarthritis, right shoulder (principal); M89.8X1 Other specified disorders of bone, shoulder; M25.811 Other specified joint disorders, right shoulder; M25.511 Pain in right shoulder
CPT/HCPCS: 73000; 73030

== ENCOUNTER 2025-08-22 03:17 | Emergency (ER) | payer MEDICARE, SELFPAY ==
[2025-08-22] VITALS (12 sets, daily range): BP systolic 159–177; BP diastolic 71–84; PULSE 60–73; RESP 15–34; TEMP 36.9; O2SAT 89–97; BMI 27.4
--- NOTE | 2025-08-22 03:21 | ED.ABDPAIN ---
HPI - Abdominal Pain <Catrachito Tristan, DO - Last Filed: 08/22/25 07:53> General Chief Complaint: Abdominal Pain Stated Complaint: Abd pain Time Seen by Provider: 08/22/25 03:21 History of Present Illness HPI narrative: 85-year-old gentleman history of CAD x 2 stents, CABG 5 vessel bypass, aortic valve replacement with pacemaker brought in via EMS for abdominal pain while attempting to sleep he did take 1 nitro which did not provide any significant relief of his symptoms. He denies any nausea, vomiting, diarrhea, constipation, back pain, rectal bleeding, urinary complaints, chest pain, shortness of breath, cough, fever, chills. Other than what is stated 14 point review of systems negative. Related Data Home Medications ?Medication ?Instructions ?Recorded ?Confirmed atorvastatin 80 mg tablet 80 mg PO DAILY 01/24/25 01/24/25 isosorbide mononitrate 60 mg 60 mg PO QAM 01/24/25 01/24/25 tablet,extended release 24 hr levothyroxine 25 mcg tablet 25 mcg PO DAILY 01/24/25 01/24/25 lisinopril 40 mg tablet 40 mg PO DAILY 01/24/25 01/24/25 metformin 500 mg tablet,extended 1,000 mg PO BID 01/24/25 01/24/25 release 24 hr metoprolol succinate 50 mg 50 mg PO DAILY 01/24/25 01/24/25 tablet,extended release 24 hr torsemide 10 mg tablet 10 mg PO PRN 01/24/25 01/24/25 Previous Rx's ?Medication ?Instructions ?Recorded benzonatate 200 mg capsule 200 mg PO TID PRN cough #30 caps 01/24/25 aluminum-mag hydroxide-simethicone 10 ml PO QID PRN dyspepsia #500 mL 08/22/25 200 mg-200 mg-20 mg/5 mL oral susp (Maalox Advanced) Allergies Allergy/AdvReac Type Severity Reaction Status Date / Time No Known Drug Allergies Allergy Verified 08/22/25 03:20 Review of Systems <Catrachito Tristan DO - Last Filed: 08/22/25 07:53> Review of Systems ROS Unobtainable: All systems reviewed & are unremarkable except as noted in HPI and below Patient History <Catrachito Tristan DO - Last Filed: 08/22/25 07:53> Medical History (Updated 08/22/25 @ 07:38 by Néstor Vieira MD) COVID-19 Social History Smoking Status: Never smoker alcohol intake frequency: holidays/special occasions only Exam <Catrachito Tristan DO - Last Filed: 08/22/25 07:53> Narrative Exam Narrative: GENERAL: [85] year old patient appears stated age. Well-developed patient, in mild distress. HEAD: Atraumatic. Normocephalic. EYES: Pupils equal round and reactive. Extraocular motions intact. No scleral icterus. No injection or drainage. NECK: Trachea midline. Non tender CARDIOVASCULAR: Regular rate and rhythm without murmurs, gallops, or rubs. RESPIRATORY: Clear to auscultation. Breath sounds equal bilaterally. No wheezes, rales, or rhonchi. GASTROINTESTINAL: Abdomen soft, TTP epigastric region, nondistended. EXTREMITIES: No edema or joint tenderness. BACK: Nontender without deformity or crepitance. No flank tenderness. NEURO: AOx3. SKIN: No rash or erythema of visible areas Initial Vital Signs Initial Vital Signs: Vital Signs Temperature 98.5 F 08/22/25 03:21 Pulse Rate 73 08/22/25 03:21 Respiratory Rate 18 08/22/25 03:21 Blood Pressure 177/84 H 08/22/25 03:21 Pulse Oximetry 95 08/22/25 03:21 Oxygen Delivery Method Room Air 08/22/25 03:21 <Néstor Vieira MD - Last Filed: 08/22/25 07:41> Initial Vital Signs Initial Vital Signs: Vital Signs Temperature 98.5 F 08/22/25 03:21 Pulse Rate 73 08/22/25 03:21 Respiratory Rate 18 08/22/25 03:21 Blood Pressure 177/84 H 08/22/25 03:21 Pulse Oximetry 95 08/22/25 03:21 Oxygen Delivery Method Room Air 08/22/25 03:21 Course <Catrachito Tristan DO - Last Filed: 08/22/25 07:53> Orders Ordered: ED Orders 08/22/25 03:26 Complete Blood Count AUTO DIFF Stat Comprehensive Metabolic Panel Stat Lipase Stat Trop I [Troponin I] Stat EKG-12 Lead Stat 08/22/25 03:31 CT abdomen pelvis w con Stat 08/22/25 05:21 US abdomen limited Stat 08/22/25 06:35 Troponin I Stat Ondansetron HCl (Ondansetron 4 Mg/2 Ml Inj) 4 mg IV NOW PRN PRN Reason: Nausea And Vomiting Ondansetron HCl (Ondansetron 4 Mg Odt) 4 mg PO NOW PRN PRN Reason: Nausea And Vomiting Vital Signs Vital signs: Vital Signs - 8 hr 08/22/25 03:21 08/22/25 03:29 08/22/25 03:30 Temperature 98.5 F Pulse Rate 73 60 60 Respiratory Rate 18 15 34 H Blood Pressure 177/84 H Pulse Oximetry 95 96 95 Oxygen Delivery Method Room Air Room Air 08/22/25 04:00 08/22/25 04:01 08/22/25 04:01 Temperature Pulse Rate 60 60 Respiratory Rate 22 22 Blood Pressure 159/71 H Pulse Oximetry 90 L 90 L Oxygen Delivery Method 08/22/25 04:30 08/22/25 05:00 08/22/25 06:38 Temperature Pulse Rate 60 60 62 Respiratory Rate 20 20 28 H Blood Pressure Pulse Oximetry 97 97 89 L Oxygen Delivery Method 08/22/25 07:21 08/22/25 07:22 08/22/25 07:22 Temperature Pulse Rate 62 60 Respiratory Rate Blood Pressure 161/77 H Pulse Oximetry 96 97 Oxygen Delivery Method 08/22/25 07:30 08/22/25 07:44 Temperature Pulse Rate 63 Respiratory Rate 20 Blood Pressure Pulse Oximetry 97 Oxygen Delivery Method <Néstor Vieira MD - Last Filed: 08/22/25 07:41> Orders Ordered: ED Orders 08/22/25 03:26 Complete Blood Count AUTO DIFF Stat Comprehensive Metabolic Panel Stat Lipase Stat Trop I [Troponin I] Stat EKG-12 Lead Stat 08/22/25 03:31 CT abdomen pelvis w con Stat 08/22/25 05:21 US abdomen limited Stat 08/22/25 06:35 Troponin I Stat Ondansetron HCl (Ondansetron 4 Mg/2 Ml Inj) 4 mg IV NOW PRN PRN Reason: Nausea And Vomiting Ondansetron HCl (Ondansetron 4 Mg Odt) 4 mg PO NOW PRN PRN Reason: Nausea And Vomiting Vital Signs Vital signs: Vital Signs - 8 hr 08/22/25 03:21 08/22/25 03:29 08/22/25 03:30 Temperature 98.5 F Pulse Rate 73 60 60 Respiratory Rate 18 15 34 H Blood Pressure 177/84 H Pulse Oximetry 95 96 95 Oxygen Delivery Method Room Air Room Air 08/22/25 04:00 08/22/25 04:01 08/22/25 04:01 Temperature Pulse Rate 60 60 Respiratory Rate 22 22 Blood Pressure 159/71 H Pulse Oximetry 90 L 90 L Oxygen Delivery Method 08/22/25 04:30 08/22/25 05:00 08/22/25 06:38 Temperature Pulse Rate 60 60 62 Respiratory Rate 20 20 28 H Blood Pressure Pulse Oximetry 97 97 89 L Oxygen Delivery Method 08/22/25 07:21 08/22/25 07:22 08/22/25 07:22 Temperature Pulse Rate 62 60 Respiratory Rate Blood Pressure 161/77 H Pulse Oximetry 96 97 Oxygen Delivery Method 08/22/25 07:30 08/22/25 07:44 Temperature Pulse Rate 63 Respiratory Rate 20 Blood Pressure Pulse Oximetry 97 Oxygen Delivery Method MDM - Abdominal Pain <Catrachito Tristan, DO - Last Filed: 08/22/25 07:53> Lab Data 08/22/25 03:26 08/22/25 03:26 Labs: Lab Results 08/22/25 08/22/25 Range/Units 03:26 06:35 WBC 6.9 (4.5-11.0) X10^3/uL RBC 4.01 L (4.5-5.9) X10^6/uL Hgb 12.8 L (13.5-17.5) g/dL Hct 38.3 L (41-53) % MCV 95.3 (80-100) fL MCH 31.8 (26-34) PG MCHC 33.4 (30-36) % RDW 14.6 (11.6-14.8) % Plt Count 128 L (150-400) X10^3/uL Neut % (Auto) 67.1 (50-75) % Lymph % (Auto) 19.3 L (25-40) % [place]ds % (Auto) 9.7 (3-14) % Eos % (Auto) 3.3 (2-4) % Baso % (Auto) 0.6 (0-2) % Neut # (Auto) 4700 (5513-4924) /uL Lymph # (Auto) 1300 (1483-0246) /uL Ed[place]ds # (Auto) 700 (0-900) /uL Eos # (Auto) 200 (0-450) /uL Baso # (Auto) 0 (0-100) /uL Sodium 142 (137-145) mmol/L Potassium 4.2 (3.4-5.1) mmol/L Chloride 106 (98-107) mmol/L Carbon Dioxide 30 (22-32) mmol/L BUN 28 H (9-20) mg/dL Creatinine 1.16 (0.66-1.25) mg/dL Estimated GFR > 60 (>60) mL/min BUN/Creatinine Ratio 24.1 H (6-22) Glucose 130 H (70-99) mg/dL Calcium 9.4 (8.4-10.2) mg/dL Total Bilirubin 0.6 (0.2-1.3) mg/dL AST 37 (17-59) IU/L ALT 21 (<50) IU/L Alkaline Phosphatase 93 (38-126) U/L Troponin I < 0.012 < 0.012 (0.01-0.034) ng/mL Total Protein 7.0 (6.3-8.2) g/dL Albumin 4.1 (3.5-5.0) g/dL Globulin 2.9 (1.7-4.1) g/dL Albumin/Globulin Ratio 1.4 (1.0-2.8) Lipase 82 (23-300) U/L Point of care testing: Urine Dip Bedside Urine Glucose Negative Bedside Urine Bilirubin - Negative Bedside Urine Ketone - Negative Urine Specific [place] 1.010 Bedside Urine Occult Blood - Negative Bedside Urine pH 7.0 Bedside Urine Protein - Negative Bedside Urine Urobilinogen - Negative Bedside Urine Nitrite - Negative Bedside Urine Leukocytes - Negative Esterase Imaging Data CT scan - abdomen/pelvis: Radiologist's Impression: CT abdomen and pelvis showed 5 mm calculus impacted in goal of bladder neck or cystic duct with minimal stranding at the bree hepatis. Clinical correlation for possibility of acute cholecystitis. Apparent thickening gastric antral wall but partially class may be artificial can not exclude mild gastritis. US - abdomen: Radiologist's Impression: Normal gallbladder normal caliber common bile duct gallbladder is physiologically distended no gallstones sludge or wall abnormality ECG Data Interpretation: AV dual paced Rhythm HR 62 CA 180 QRS [address]-t wave change Unchanged from 10/05/23 MDM Narrative Medical decision making narrative: All lab work, vital signs, nurse triage note, medication list, previous ER visits, and all imaging studies reviewed. WBC 6.9 hemoglobin 12.8 platelet 128. Sodium 142 potassium 4.2 chloride 106 CO2 30 BUN 28 creatinine 1.16 glucose 130 lipase 82 troponin less than 0.012. CT abdomen and pelvis showed 5 mm calculus impacted in goal of bladder neck or cystic duct with minimal stranding at the bree hepatis. Clinical correlation for possibility of acute cholecystitis. Apparent thickening gastric antral wall but partially class may be artificial can not exclude mild gastritis. Normal gallbladder normal caliber common bile duct gallbladder is physiologically distended no gallstones sludge or wall abnormality. Differential diagnosis appendicitis cholecystitis pancreatitis kidney stone kidney infection diverticulitis constipation. Pt s/o to at shift change pending final disposition. 2nd trop neg, pt stable for DC <Néstor Vieira MD - Last Filed: 08/22/25 07:41> Lab Data Labs: Lab Results 08/22/25 08/22/25 Range/Units 03:26 06:35 WBC 6.9 (4.5-11.0) X10^3/uL RBC 4.01 L (4.5-5.9) X10^6/uL Hgb 12.8 L (13.5-17.5) g/dL Hct 38.3 L (41-53) % MCV 95.3 (80-100) fL MCH 31.8 (26-34) PG MCHC 33.4 (30-36) % RDW 14.6 (11.6-14.8) % Plt Count 128 L (150-400) X10^3/uL Neut % (Auto) 67.1 (50-75) % Lymph % (Auto) 19.3 L (25-40) % Edmunds % (Auto) 9.7 (3-14) % Eos % (Auto) 3.3 (2-4) % Baso % (Auto) 0.6 (0-2) % Neut # (Auto) 4700 (0612-5193) /uL Lymph # (Auto) 1300 (2686-6686) /uL Edmunds # (Auto) 700 (0-900) /uL Eos # (Auto) 200 (0-450) /uL Baso # (Auto) 0 (0-100) /uL Sodium 142 (137-145) mmol/L Potassium 4.2 (3.4-5.1) mmol/L Chloride 106 (98-107) mmol/L Carbon Dioxide 30 (22-32) mmol/L BUN 28 H (9-20) mg/dL Creatinine 1.16 (0.66-1.25) mg/dL Estimated GFR > 60 (>60) mL/min BUN/Creatinine Ratio 24.1 H (6-22) Glucose 130 H (70-99) mg/dL Calcium 9.4 (8.4-10.2) mg/dL Total Bilirubin 0.6 (0.2-1.3) mg/dL AST 37 (17-59) IU/L ALT 21 (<50) IU/L Alkaline Phosphatase 93 (38-126) U/L Troponin I < 0.012 < 0.012 (0.01-0.034) ng/mL Total Protein 7.0 (6.3-8.2) g/dL Albumin 4.1 (3.5-5.0) g/dL Globulin 2.9 (1.7-4.1) g/dL Albumin/Globulin Ratio 1.4 (1.0-2.8) Lipase 82 (23-300) U/L Point of care testing: Urine Dip Bedside Urine Glucose Negative Bedside Urine Bilirubin - Negative Bedside Urine Ketone - Negative Urine Specific [place] 1.010 Bedside Urine Occult Blood - Negative Bedside Urine pH 7.0 Bedside Urine Protein - Negative Bedside Urine Urobilinogen - Negative Bedside Urine Nitrite - Negative Bedside Urine Leukocytes - Negative Esterase MDM Narrative Medical decision making narrative: All lab work, vital signs, nurse triage note, medication list, previous ER visits, and all imaging studies reviewed. WBC 6.9 hemoglobin 12.8 platelet 128. Sodium 142 potassium 4.2 chloride 106 CO2 30 BUN 28 creatinine 1.16 glucose 130 lipase 82 troponin less than 0.012. CT abdomen and pelvis showed 5 mm calculus impacted in goal of bladder neck or cystic duct with minimal stranding at the bree hepatis. Clinical correlation for possibility of acute cholecystitis. Apparent thickening gastric antral wall but partially class may be artificial can not exclude mild gastritis. Normal gallbladder normal caliber common bile duct gallbladder is physiologically distended no gallstones sludge or wall abnormality. Differential diagnosis appendicitis cholecystitis pancreatitis kidney stone kidney infection diverticulitis constipation. 2nd trop neg, pt stable for DC Discharge Plan Departure Patient Disposition: Home Clinical Impression: Acute abdominal pain Activity Restrictions/Additional Instructions: Return for fever > 38?C, vomiting, inability to tolerate fluids, abnormal bowel movements, or unable to pass gas. Regrese por fiebre >38 ? C, v?mitos, incapacidad para tolerar l?quidos, deposiciones anormales o incapacidad para evacuar gases. Please return to ED if you have worsening chest pain, shortness of breath, dizziness, nausea, passing out, or any other concern. Si el dolor de pecho sigue, pierde conocimiento, tiene problemas con respiraci?n o cualquier otra sonu, por favor vuelve a urgencias. Prescriptions: New alum-mag hydroxide-simeth [Maalox Advanced] 200-200-20 mg/5 mL suspension 10 ml PO QID PRN (Reason: dyspepsia) Qty: 500 0RF Rx Instructions: administer between meals and at bedtime No Action lisinopril 40 mg tablet 40 mg PO DAILY atorvastatin 80 mg tablet 80 mg PO DAILY isosorbide mononitrate 60 mg tablet extended release 24 hr 60 mg PO QAM levothyroxine 25 mcg tablet 25 mcg PO DAILY metformin 500 mg tablet extended release 24 hr 1,000 mg PO BID metoprolol succinate 50 mg tablet extended release 24 hr 50 mg PO DAILY torsemide 10 mg tablet 10 mg PO PRN benzonatate 200 mg capsule 200 mg PO TID PRN (Reason: cough) Qty: 30 0RF Referrals: Miscellaneous,Doctor, MD [Primary Care Provider, Medical] Stand Alone Forms: Patient Portal/API
--- NOTE | 2025-08-22 03:28 | EKG_ITS ---
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
--- NOTE | 2025-08-22 03:31 | DI.CT.S_ITS ---
PROCEDURE: CT ABDOMEN PELVIS W CON INDICATIONS: abd pain TECHNIQUE: After the administration of intravenous contrast, axial sections acquired from the lung bases to the pubic symphysis. Coronal and sagittal reformats were performed. For radiation dose reduction, the following was used: automated exposure control, adjustment of mA and/or kV according to patient size. COMPARISON: None. FINDINGS: Image quality: Diagnostic. Lower Chest: Median sternotomy wires are seen. Pacemaker leads are also noted. Heart size is mildly enlarged, no pericardial effusion. Prosthetic aortic valve is seen. Bilateral lung bases are clear. ABDOMEN: Liver: No solid mass. Gallbladder: Single calcified stone in neck of gallbladder is seen. No gallbladder wall thickening. Biliary ducts: No biliary dilation. Pancreas: No ductal dilation. Spleen: Size is within normal limits. Adrenal Glands: No adrenal nodules. Kidneys and Ureters: No hydronephrosis. No solid mass. No complex renal cystic lesion which requires follow up. Stomach and Bowel: Normal colonic caliber, without significant wall thickening. Normal appendix. No abscess collection. Moderate fecal stasis throughout the colon is seen. Peritoneum: No abnormal intraperitoneal fluid. No free air. Ventral Wall: No significant ventral hernia. Abdominal Nodes: No retroperitoneal or mesenteric adenopathy by size criteria. Vessels: Aorta and inferior vena cava are normal in size. Moderate osteoarthritic changes throughout abdominal aorta is seen. PELVIS: Pelvic Organs: Enlarged prostate gland. Bladder: No bladder wall thickening. No calcified bladder stones. Pelvic Nodes: No enlarged lymph nodes. Miscellaneous: No inguinal hernias are seen. Bones: No aggressive osseous abnormality. IMPRESSION: 1. Cholelithiasis. No obvious gallbladder wall thickening. If clinically indicated, ultrasound of right upper quadrant abdomen can be done for further evaluation. No significant biliary ductal dilatation. 2. No bowel obstruction or abnormal bowel wall thickening. No abscess collection. Normal appendix. No free fluid or free air. 3. Other chronic findings as above. No significant discrepancies from preliminary reading. Dictated by: Dakota Nair M.D. on 08/22/2025 at 8:05 Approved by: Dakota Nair M.D. on 08/22/2025 at 8:11
[2025-08-22 03:42] LABS: Add Manual Diff / Slide Review NO; Hematocrit 38.3 % (41-53); Hemoglobin 12.8 g/dL (13.5-17.5); Lymphocytes Absolute Auto 1300 /uL (1100-4500); Mean Corpuscular HGB Conc 33.4 % (30-36); Mean Corpuscular Hemoglobin 31.8 PG (26-34); Mean Corpuscular Volume 95.3 fL (80-100); Platelet Count 128 X10^3/uL (150-400)
[2025-08-22 04:03] LABS: Alanine Aminotransferase 21 IU/L (<50); Albumin 4.1 g/dL (3.5-5.0); Albumin Globulin Ratio 1.4 (1.0-2.8); Alkaline Phosphatase 93 U/L (38-126); Blood Urea Nitrogen 28 mg/dL (9-20); Calcium 9.4 mg/dL (8.4-10.2); Carbon Dioxide 30 mmol/L (22-32); Chloride 106 mmol/L (98-107); Estimated Glomerular Filt Rate > 60 mL/min (>60); Globulin 2.9 g/dL (1.7-4.1); Glucose 130 mg/dL (70-99); HEMOLYSIS 17 (0-50); Lipase 82 U/L (23-300); Potassium 4.2 mmol/L (3.4-5.1); Sodium 142 mmol/L (137-145); Total Protein 7.0 g/dL (6.3-8.2)
[2025-08-22 04:16] LABS: Troponin I < 0.012 ng/mL (0.01-0.034)
--- NOTE | 2025-08-22 05:21 | DI.US.S_ITS ---
PROCEDURE: US ABDOMEN LIMITED INDICATIONS: Per CT recommendation TECHNIQUE: Real-time scanning was performed of the abdominal and retroperitoneal organs, with image documentation. COMPARISON: [facility], CT, CT ABDOMEN PELVIS W CON, 08/22/2025, 4:09. FINDINGS: Liver: Liver is normal in size and homogeneous in echotexture. Gallbladder: CT finding of 5 mm stone at the neck of gallbladder is not visualized on this study. There is no gallbladder wall thickening or pericholecystic fluid. No sonographic Haskins's sign. Biliary ducts: Intrahepatic bile ducts are non-dilated. Extrahepatic bile duct caliber measures 5.1 mm. Normal is 6-7 mm or less in diameter, or 10 mm or less post-cholecystectomy. Pancreas: Visualized portions of the pancreas are sonographically normal. Miscellaneous: No free abdominal fluid. IMPRESSION: Patient's known stone in the region of gallbladder neck is not visualized on this study. No sonographic evidence of acute cholecystitis. No biliary ductal dilatation. Dictated by: Dakota Nair M.D. on 08/22/2025 at 8:11 Approved by: Dakota Nair M.D. on 08/22/2025 at 8:13
[2025-08-22 07:12] LABS: Troponin I < 0.012 ng/mL (0.01-0.034)
== END 2025-08-22 07:53 | disposition home or self-care (01) ==
PROVIDERS: Family Medicine; Emergency Provider Emergency Medicine
DX: R10.9 Unspecified abdominal pain (principal); K80.20 Calculus of gallbladder without cholecystitis without obstruction; Z95.1 Presence of aortocoronary bypass graft; Z95.5 Presence of coronary angioplasty implant and graft; Z95.0 Presence of cardiac pacemaker
CPT/HCPCS: 36415; 74177; 76705; 80053; 81003; 83690; 84484; 85025; 93005; 93010; 99283; 99284; Q9967